=== PATIENT | female | born 1990 | race Caucasian/White ===

== ENCOUNTER → 2016-06-19 22:43 | Emergency (ER) | payer MEDICAID | END | disposition left against medical advice (07) | LOC: ED 22:43 | DX: R06.02 Shortness of breath (principal); Z53.21 Procedure and treatment not carried out due to patient leaving prior to being seen by health care provider ==

== ENCOUNTER 2016-12-16 12:22 | Emergency (ER) | payer MEDICAID, OTHER ==
[2016-12-16 17:53] VITALS: BP 120/77
[2016-12-16] MEDS ORDERED: NACL 0.9% 1000 ML 1,000 ML IV ONE (18:20)
[2016-12-16] MEDS ORDERED: ZOFRAN IV ONE (18:20)
--- NOTE | 2016-12-16 18:53 | Emergency Department Report ---
ED General Adult HPI - General Chief complaint: Medical Clearance Stated complaint: BINGE DRINKING,FAST HEART BEAT Time Seen by Provider: 12/16/16 18:16 Source: patient Mode of arrival: Ambulatory Limitations: No Limitations - History of Present Illness Initial comments: pt is 26 y/o female who with hx bipolar, and anxiety, etoh , who presents with complaint of anxiety and insomnia since last night pt denies SI or HI, no n/v no chest pain , sob no fever no chills, patient states "I was drinking Yagermiester and redbull last night and now I cant sleep" pt denies other substance no smoking . Onset/Timin -: days(s) Radiation: other (anxiety ) Severity scale (0 -10): 3 Consistency: constant Improves with: none Worsens with: none Associated Symptoms: denies: confusion, chest pain, cough, diaphoresis, fever/ chills, headaches, loss of appetite, malaise, nausea/vomiting, rash, seizure, shortness of breath Treatments Prior to Arrival: none - Related Data Previous Rx's Medication Instructions Recorded Last Taken Type Nitrofurantoin [place]/M-Cryst 100 mg PO Q12HR #14 capsule 10/03/15 Unknown Rx [Macrobid CAP] hydrOXYzine HCL [Atarax] 25 mg PO Q6HR PRN #30 tablet 12/16/16 Unknown Rx Allergies Allergy/AdvReac Type Severity Reaction Status Date / Time No Known Allergies Allergy Verified 05/24/15 17:49 ED Review of Systems ROS: Stated complaint: BINGE DRINKING,FAST HEART BEAT Other details as noted in HPI Constitutional: denies: chills, diaphoresis, fever, malaise, weakness Eyes: denies: eye pain, eye discharge, vision change ENT: denies: ear pain, throat pain Respiratory: denies: cough, shortness of breath, wheezing Cardiovascular: denies: chest pain, palpitations, dyspnea on exertion, orthopnea , paroxysmal nocturnal dyspnea Endocrine: no symptoms reported Gastrointestinal: as per HPI, nausea Genitourinary: denies: urgency, dysuria, discharge Musculoskeletal: denies: back pain, joint swelling, arthralgia Skin: denies: rash, lesions Neurological: denies: headache, weakness, numbness, paresthesias, confusion, abnormal gait, vertigo Psychiatric: anxiety. denies: depression, auditory hallucinations, visual hallucinations, homicidal thoughts, suicidal thoughts Hematological/Lymphatic: denies: easy bleeding, easy bruising ED Past Medical Hx - Past Medical History Previous Medical History?: Yes Hx Psychiatric Treatment: Yes (BiPolar, panic attacks, anxiety) - Surgical History Past Surgical History?: No - Social History Smoking Status: Current Every Day Smoker Substance Use Type: Alcohol - Medications Home Medications: Home Medications Medication Instructions Recorded Confirmed Last Taken Type Nitrofurantoin Sanborn/M-Cryst 100 mg PO Q12HR #14 capsule 10/03/15 Unknown Rx [Macrobid CAP] hydrOXYzine HCL [Atarax] 25 mg PO Q6HR PRN #30 tablet 12/16/16 Unknown Rx ED Physical Exam - General Limitations: No Limitations General appearance: alert, anxious - Head Head exam: Present: atraumatic, normocephalic, normal inspection - Eye Eye exam: Present: normal appearance, PERRL, EOMI Pupils: Present: normal accommodation - ENT ENT exam: Present: normal exam, normal orophraynx, mucous membranes moist, TM's normal bilaterally, normal external ear exam - Neck Neck exam: Present: normal inspection, full ROM. Absent: tenderness, lymphadenopathy, thyromegaly - Respiratory Respiratory exam: Present: normal lung sounds bilaterally. Absent: respiratory distress, wheezes, stridor - Cardiovascular Cardiovascular Exam: Present: regular rate, normal rhythm. Absent: systolic murmur, diastolic murmur, rubs, gallop - GI/Abdominal GI/Abdominal exam: Present: soft, normal bowel sounds. Absent: distended, tenderness, guarding, rebound, rigid, organomegaly, mass, bruit, pulsatile mass , hernia - Rectal Rectal exam: Present: deferred - Extremities Exam Extremities exam: Present: normal inspection, full ROM, normal capillary refill. Absent: tenderness, pedal edema, joint swelling, calf tenderness - Back Exam Back exam: Present: normal inspection, full ROM. Absent: tenderness, CVA tenderness (R), CVA tenderness (L), muscle spasm, paraspinal tenderness, vertebral tenderness - Neurological Exam Neurological exam: Present: alert, oriented X3, CN II-XII intact, normal gait, reflexes normal - Psychiatric Psychiatric exam: Present: anxious. Absent: depressed, agitated, flat affect, manic, homicidal ideation, suicidal ideation - Skin Skin exam: Present: warm, dry, intact, normal color. Absent: rash ED Course Vital Signs 12/16/16 12/16/16 12:56 17:45 Temperature 98.2 F Pulse Rate 82 71 Respiratory 20 16 Rate Blood Pressure 112/78 120/77 O2 Sat by Pulse 99 100 Oximetry ED Medical Decision Making - Lab Data Result diagrams: 12/16/16 18:43 12/16/16 18:43 Laboratory Tests 12/16/16 12/16/16 12/16/16 18:43 18:43 18:43 WBC 5.3 RBC 4.56 Hgb 15.0 H Hct 43.1 H MCV 94 MCH 33 H MCHC 35 H RDW 12.5 L Plt Count 157 Lymph % (Auto) 41.8 H [place]born % (Auto) 8.3 H Eos % (Auto) 0.6 Baso % (Auto) 0.5 Lymph # 2.2 Sanborn # 0.4 Eos # 0.0 Baso # 0.0 Seg Neutrophils % 48.8 Seg Neutrophils # 2.6 Sodium 145 Potassium 4.2 Chloride 102.3 Carbon Dioxide 27 Anion Gap 20 BUN 5 L Creatinine 0.5 L Estimated GFR > 60 BUN/Creatinine Ratio 10 Glucose 87 Calcium 9.9 Total Bilirubin 0.40 AST 23 ALT 23 Alkaline Phosphatase 63 Total Protein 7.8 Albumin 5.1 H Albumin/Globulin Ratio 1.9 Urine Color Urine Turbidity Urine pH Ur Specific [place] Urine Protein Urine Glucose (UA) Urine Ketones Urine Blood Urine Nitrite Ur Reducing Substances Urine Bilirubin Urine Ictotest Urine Urobilinogen Ur Leukocyte Esterase Urine WBC (Auto) Urine RBC (Auto) U Epithel Cells (Auto) Urine HCG, Qual Urine Opiates Screen Urine Methadone Screen Ur Barbiturates Screen Ur Phencyclidine Scrn Ur Amphetamines Screen U Benzodiazepines Scrn Urine Cocaine Screen U Marijuana (THC) Screen Drugs of Abuse Note Plasma/Serum Alcohol < 0.01 12/16/16 12/16/16 20:13 20:13 WBC RBC Hgb Hct MCV MCH MCHC RDW Plt Count Lymph % (Auto) Sanborn % (Auto) Eos % (Auto) Baso % (Auto) Lymph # Sanborn # Eos # Baso # Seg Neutrophils % Seg Neutrophils # Sodium Potassium Chloride Carbon Dioxide Anion Gap BUN Creatinine Estimated GFR BUN/Creatinine Ratio Glucose Calcium Total Bilirubin AST ALT Alkaline Phosphatase Total Protein Albumin Albumin/Globulin Ratio Urine Color Straw Urine Turbidity Clear Urine pH 7.0 Ur Specific [place] 1.005 Urine Protein <15 mg/dl Urine Glucose (UA) Neg Urine Ketones Neg Urine Blood Neg Urine Nitrite Neg Ur Reducing Substances Not Reportable Urine Bilirubin Neg Urine Ictotest Not Reportable Urine Urobilinogen < 2.0 Ur Leukocyte Esterase Tr Urine WBC (Auto) 2.0 Urine RBC (Auto) 3.0 U Epithel Cells (Auto) 3.0 Urine HCG, Qual Negative Urine Opiates Screen Presumptive negative Urine Methadone Screen Presumptive negative Ur Barbiturates Screen Presumptive negative Ur Phencyclidine Scrn Presumptive negative Ur Amphetamines Screen Presumptive negative U Benzodiazepines Scrn Presumptive negative Urine Cocaine Screen Presumptive negative U Marijuana (THC) Screen Presumptive negative Drugs of Abuse Note Disclamer Plasma/Serum Alcohol - EKG Data EKG shows normal: sinus rhythm Rate: normal - EKG Data When compared to previous EKG there are: no significant change Interpretation: no acute changes, normal EKG 12/16/16 21:09 ekg interpreted by ED attending - Medical Decision Making pt is 26 y/o female who with hx bipolar, and anxiety, etoh , who presents with complaint of anxiety and insomnia since last night pt denies SI or HI, no n/v no chest pain , sob no fever no chills, patient states "I was drinking Yagermiester and redbull last night and now I cant sleep" pt denies other substance no smoking. pt noted with mild anxiety denies si or hi appears well hydrated well nourished no distress at this time dressed appropriately mentation appropriated a/ox 3, is not threat to self or others at this time. no tremor no vomiting , palpations . lungs clear cv: s1 and s2 no MRG, no pnd no rocha no edema , abd : bs x 4 qds soft nontender no rebound no bruit no hernia pt has discharge plan as father will pick her up tonight upon discharge, : labs: ua : normal , hcg: negative, uds: negative, etoh: <0.01, cmp and cbc: no concerning findings pt is now tolerating po intake without symptoms , pt advised to stop ETOH, and follow up with [facility] Psychologist tomorrow, for follow up and referral to AA. pt is currently a/o x 3 ambulatory gait steady with nad, no tremor no si no hi dizziness no light headedness no n/v dc' d to self to home via pov and family member at this time. Critical care attestation.: If time is entered above; I have spent that time in minutes in the direct care of this critically ill patient, excluding procedure time. ED Disposition Clinical Impression: Dizziness, ETOH abuse Disposition: DC-01 TO HOME OR SELFCARE Is pt being admited?: No Does the pt Need Aspirin: No Condition: Stable Instructions: Abuse of Alcohol (ED), Anxiety (ED) Additional Instructions: follow up with your psycologist at [facility] tomorrow, Also [facility] at [address] [place] [address] Prescriptions: hydrOXYzine HCL [Atarax] 25 mg PO Q6HR PRN #30 tablet PRN Reason: Anxiety Referrals: PRIMARY CARE, [Primary Care Provider] - 3-5 Days Forms: Work/School Release Form(ED) Time of Disposition: 21:12
[2016-12-16 19:08] LABS: Basophils % (Auto) 0.5 % (0.0-1.8); Eosinophils % (Auto) 0.6 % (0.0-4.3); Hematocrit 43.1 % (30.3-42.9); Mean Corpuscular HGB Conc 35 % (30-34); Mean Corpuscular Hemoglobin 33 pg (28-32); Mean Corpuscular Volume 94 fl (79-97); Platelet Count 157 K/mm3 (140-440); Red Blood Count 4.56 M/mm3 (3.65-5.03); Red Cell Distribution Width 12.5 % (13.2-15.2); White Blood Count 5.3 K/mm3 (4.5-11.0)
[2016-12-16 19:21] LABS: Alanine Aminotransferase 23 units/L (7-56); Albumin 5.1 g/dL (3.9-5); Albumin/Globulin Ratio 1.9 %; Alkaline Phosphatase 63 units/L (35-129); Anion Gap 20 mmol/L; BUN/Creatinine Ratio 10; Blood Urea Nitrogen 5 mg/dL (7-17); Calcium 9.9 mg/dL (8.4-10.2); Carbon Dioxide 27 mmol/L (22-30); Chloride 102.3 mmol/L (98-107); Glucose 87 mg/dL (65-100); Potassium 4.2 mmol/L (3.6-5.0); Sodium 145 mmol/L (137-145); Total Protein 7.8 g/dL (6.3-8.2)
[2016-12-16 20:23] LABS: Urine Drugs of Abuse Note Disclamer
[2016-12-16 20:33] LABS: Bilirubin,Urine NEG (Negative); Blood,Urine NEG (Negative); Ketones,Urine NEG (Negative); Leukocyte Esterase,Urine TR (Negative); Nitrite,Urine NEG (Negative); Protein,Urine <15 mg/dL mg/dL (Negative); Urobilinogen,Urine < 2.0 mg/dL (<2.0)
== END 2016-12-16 21:21 | disposition home or self-care (01) ==
LOC: ED 12:22
DX: R42 Dizziness and giddiness (principal); F10.10 Alcohol abuse, uncomplicated; F31.9 Bipolar disorder, unspecified; F17.200 Nicotine dependence, unspecified, uncomplicated
CPT/HCPCS: 36415; 80053; 80307; 81001; 81025; 85025; 93005; 93010; 96361; 96374; 99283; G0480; J2405; J7030; 80320

== ENCOUNTER 2019-04-09 18:01 | Outpatient (CLI) | payer MEDICAID ==
[2019-04-09] MEDS ORDERED: LACTATED RINGERS 1,000 ML IV ONE (18:59)
[2019-04-09 19:08] VITALS: BP 109/70
[2019-04-09 19:35] LABS: Bilirubin,Urine NEG (Negative); Blood,Urine NEG (Negative); Color,Urine Yellow (Yellow); Mucus,Urine FEW /HPF; Protein,Urine <15 mg/dL mg/dL (Negative); Urobilinogen,Urine < 2.0 mg/dL (<2.0)
== END 2019-04-09 22:20 | disposition home or self-care (01) ==
LOC: TRG 18:01
PROVIDERS: ATTEND Obstetrics & Gynecology
DX: O26.893 Other specified pregnancy related conditions, third trimester (principal); R25.2 Cramp and spasm; O47.03 False labor before 37 completed weeks of gestation, third trimester; Z67.91 Unspecified blood type, Rh negative; Z3A.29 29 weeks gestation of pregnancy
CPT/HCPCS: 81001; 85461; 86850; 86900; 86901; 96360; 96372; J2790; J7120

== ENCOUNTER 2020-05-13 22:35 | Emergency (ER) | payer MEDICAID ==
[2020-05-13 23:29] VITALS: BP 114/87
--- NOTE | 2020-05-13 23:32 | Event Note ---
ED Screening Note Date of service: 05/13/20 Time: 23:31 ED Screening Note: pt is a 29 y/o female who presents for right flank pain radiating to right superpubic region x 2 days, pt endorse dysuria frequency and urgency, LMP 1 month ago, pt denies n/v This initial assessment/diagnostic orders/clinical plan/treatment(s) is/are subject to change based on patients health status, clinical progression and re- assessment by fellow clinical providers in the ED. Further treatment and workup at subsequent clinical providers discretion. Patient/guardian urged not to elope from the ED as their condition may be serious if not clinically assessed and managed. Initial orders include: cmp, cbc, ua, hcg
[2020-05-13 23:50] LABS: Basophils # (Auto) 0.1 K/mm3 (0.0-0.1); Basophils % (Auto) 0.6 % (0.0-1.8); Eosinophils # (Auto) 0.2 K/mm3 (0.0-0.4); Eosinophils % (Auto) 2.3 % (0.0-4.3); Hemoglobin 12.2 gm/dl (10.1-14.3); Lymphocytes # (Auto) 2.3 K/mm3 (1.2-5.4); Lymphocytes % (Auto) 24.4 % (13.4-35.0); Mean Corpuscular HGB Conc 34 % (30-34); Mean Corpuscular Volume 90 fl (79-97); Monocytes # (Auto) 0.5 K/mm3 (0.0-0.8); Monocytes % (Auto) 5.5 % (0.0-7.3); Platelet Count 228 K/mm3 (140-440); Red Blood Count 3.98 M/mm3 (3.65-5.03); Red Cell Distribution Width 13.7 % (13.2-15.2)
[2020-05-14 00:03] LABS: Bacteria,Urine 3+ /HPF (Negative); Bilirubin,Urine NEG (Negative); Blood,Urine MOD (Negative); Color,Urine Yellow (Yellow); Urobilinogen,Urine < 2.0 mg/dL (<2.0)
[2020-05-14 00:08] LABS: Alanine Aminotransferase 30 units/L (7-56); Albumin 4.5 g/dL (3.9-5); Blood Urea Nitrogen 14 mg/dL (7-17); Calcium 10.1 mg/dL (8.4-10.2); Hemolysis Index 2
[2020-05-14 00:11] LABS: BUN/Creatinine Ratio 23
[2020-05-14 00:12] LABS: HCG Qualitative,Urine Negative (Negative)
--- NOTE | 2020-05-14 00:16 | Emergency Department Report ---
ED Abdominal Pain HPI - General Chief Complaint: Abdominal Pain Stated Complaint: KIDNEY PAIN Time Seen by Provider: 05/14/20 00:10 Source: patient, EMS Mode of arrival: Ambulatory Limitations: No Limitations - History of Present Illness Initial Comments: pt is a 29 y/o female who presents for right flank pain radiating to right superpubic region x 2 days, pt endorse dysuria frequency and urgency, LMP 1 month ago, pt denies n/v , pt denies fever or chills. MD Complaint: abdominal pain, flank pain - Related Data Previous Rx's Medication Instructions Recorded Last Taken Type Ibuprofen [Motrin 800 MG tab] 800 mg PO Q8HR PRN #30 tablet 05/14/20 Unknown Rx Nitrofurantoin Kings/M-Cryst 100 mg PO BID 10 Days #20 capsule 05/14/20 Unknown Rx [Macrobid CAP] Ondansetron [Zofran Odt] 4 mg PO Q8HR PRN #12 tab.rapdis 05/14/20 Unknown Rx Allergies Allergy/AdvReac Type Severity Reaction Status Date / Time No Known Allergies Allergy Verified 07/31/18 12:48 ED Review of Systems ROS: Stated complaint: KIDNEY PAIN Other details as noted in HPI Constitutional: denies: chills, fever Eyes: denies: eye pain, eye discharge, vision change ENT: denies: ear pain, throat pain Respiratory: denies: cough, shortness of breath, wheezing Cardiovascular: denies: chest pain, palpitations Endocrine: no symptoms reported Gastrointestinal: abdominal pain (right superpubic ). denies: nausea, vomiting Genitourinary: urgency, dysuria, frequency. denies: hematuria, discharge Musculoskeletal: back pain (right flank ) Skin: denies: rash, lesions Neurological: denies: headache, weakness, paresthesias Psychiatric: denies: anxiety, depression Hematological/Lymphatic: denies: easy bleeding, easy bruising ED Past Medical Hx - Past Medical History Previous Medical History?: Yes Hx Hypertension: No Hx Heart Attack/AMI: No Hx Congestive Heart Failure: No Hx Diabetes: No Hx Deep Vein Thrombosis: No Hx Liver Disease: No Hx Renal Disease: No Hx Sickle Cell Disease: No Hx Headaches / Migraines: No Hx Seizures: No Hx Psychiatric Treatment: Yes (BiPolar, panic attacks, anxiety) Hx Asthma: No Hx COPD: No Hx HIV: No - Surgical History Past Surgical History?: Yes Hx Pacemaker: No Hx Internal Defibrillator: No Additional Surgical History: LEEP - Social History Smoking Status: Never Smoker Substance Use Type: None - Medications Home Medications: Home Medications Medication Instructions Recorded Confirmed Last Taken Type Ibuprofen [Motrin 800 MG tab] 800 mg PO Q8HR PRN #30 tablet 05/14/20 Unknown Rx Nitrofurantoin Kings/M-Cryst 100 mg PO BID 10 Days #20 capsule 05/14/20 Unknown Rx [Macrobid CAP] Ondansetron [Zofran Odt] 4 mg PO Q8HR PRN #12 tab.rapdis 05/14/20 Unknown Rx ED Physical Exam - General Limitations: No Limitations General appearance: alert, in no apparent distress - Head Head exam: Present: atraumatic, normocephalic - Eye Eye exam: Present: normal appearance, EOMI Pupils: Present: normal accommodation - ENT ENT exam: Present: mucous membranes moist - Neck Neck exam: Present: normal inspection, full ROM. Absent: tenderness - Respiratory Respiratory exam: Present: normal lung sounds bilaterally. Absent: respiratory distress, wheezes, stridor - Cardiovascular Cardiovascular Exam: Present: regular rate, normal rhythm, normal heart sounds - GI/Abdominal GI/Abdominal exam: Present: soft, normal bowel sounds. Absent: distended, tenderness, guarding, rebound, rigid, bruit, hernia - Rectal Rectal exam: Present: deferred - Extremities Exam Extremities exam: Present: full ROM. Absent: tenderness - Back Exam Back exam: Present: full ROM, tenderness (right flank), CVA tenderness (R). Absent: vertebral tenderness, rash noted - Neurological Exam Neurological exam: Present: alert, oriented X3, CN II-XII intact, normal gait - Psychiatric Psychiatric exam: Present: normal affect, normal mood - Skin Skin exam: Present: warm, dry, intact, normal color. Absent: rash ED Course Vital Signs 05/13/20 23:26 Temperature 98.5 F Pulse Rate 87 Respiratory 18 Rate Blood Pressure 114/87 O2 Sat by Pulse 100 Oximetry ED Medical Decision Making - Lab Data Result diagrams: 05/13/20 23:34 05/13/20 23:34 Labs 05/13/20 05/13/20 05/13/20 23:34 23:34 Unknown WBC 9.6 RBC 3.98 Hgb 12.2 Hct 36.0 MCV 90 MCH 31 MCHC 34 RDW 13.7 Plt Count 228 Lymph % (Auto) 24.4 Kings % (Auto) 5.5 Eos % (Auto) 2.3 Baso % (Auto) 0.6 Lymph # (Auto) 2.3 Kings # (Auto) 0.5 Eos # (Auto) 0.2 Baso # (Auto) 0.1 Seg Neutrophils % 67.2 Seg Neutrophils # 6.4 Sodium 139 Potassium 4.4 Chloride 102.3 Carbon Dioxide 30 Anion Gap 11 BUN 14 Creatinine 0.6 Estimated GFR > 60 BUN/Creatinine Ratio 23 Glucose 96 Calcium 10.1 Total Bilirubin < 0.20 AST 23 ALT 30 Alkaline Phosphatase 83 Total Protein 7.2 Albumin 4.5 Albumin/Globulin Ratio 1.7 Urine Color Yellow Urine Turbidity Slightly-cloudy Urine pH 6.0 Ur Specific [place] 1.009 Urine Protein 30 mg/dl Urine Glucose (UA) Neg Urine Ketones Neg Urine Blood Mod Urine Nitrite Neg Urine Bilirubin Neg Urine Urobilinogen < 2.0 Ur Leukocyte Esterase Lg Urine WBC (Auto) 87.0 H Urine RBC (Auto) 30.0 U Epithel Cells (Auto) < 1.0 Urine Bacteria (Auto) 3+ Urine HCG, Qual Negative - Medical Decision Making ua: pos for leuk, wbcs, , cloudy. cmp, cbc normal including bun/creatinine. plan: treat for UTI, follow up with pcp in 2-3 days, Return to emergency if symptoms worsen, pt verbaized agreement and understanding of discharge plan. DC'd to home in stable condition at this time. Critical care attestation.: If time is entered above; I have spent that time in minutes in the direct care of this critically ill patient, excluding procedure time. ED Disposition Clinical Impression: UTI (urinary tract infection) Qualifiers: Urinary tract infection type: acute cystitis Hematuria presence: without hematuria Qualified Code(s): N30.00 - Acute cystitis without hematuria Disposition: DC-01 TO HOME OR SELFCARE Is pt being admited?: No Does the pt Need Aspirin: No Condition: Stable Instructions: Abdominal Pain (ED), Antibiotic Medicine, Adult, Urinary Tract Infection, Adult Prescriptions: Nitrofurantoin Kings/M-Cryst [Macrobid CAP] 100 mg PO BID 10 Days #20 capsule Ibuprofen [Motrin 800 MG tab] 800 mg PO Q8HR PRN #30 tablet PRN Reason: pain fever Ondansetron [Zofran Odt] 4 mg PO Q8HR PRN #12 tab.rapdis PRN Reason: Nausea And Vomiting Referrals: [facility] [Other] - 3-5 Days Forms: Work/School Release Form(ED) Time of Disposition: 00:24
== END 2020-05-14 01:18 | disposition home or self-care (01) ==
LOC: ED 22:35
DX: N39.0 Urinary tract infection, site not specified (principal); F31.9 Bipolar disorder, unspecified; Z79.899 Other long term (current) drug therapy
CPT/HCPCS: 36415; 80053; 81001; 81025; 85025; 87086; 99283

== ENCOUNTER 2021-07-06 08:21 | Outpatient (CLI) | payer MEDICAID ==
[2021-07-06] MEDS ORDERED: LACTATED RINGERS 500 ML IV ONE (08:38)
[2021-07-06] MEDS ORDERED: ONDANSETRON 4 MG/2 ML INJ IV ONE (08:39)
[2021-07-06] MEDS ORDERED: ONDANSETRON 4 MG/2 ML INJ ONE (08:41)
[2021-07-06] MEDS ORDERED: LACTATED RINGERS 1,000 ML ONE (08:42)
[2021-07-06 08:55] VITALS: BP 102/55
[2021-07-06] MEDS ORDERED: LACTATED RINGERS 1,000 ML IV SCH (09:00)
[2021-07-06 10:59] LABS: Bilirubin,Urine NEG (Negative); Blood,Urine NEG (Negative); Color,Urine Yellow (Yellow); Mucus,Urine 3+ /HPF; Protein,Urine <15 mg/dL mg/dL (Negative); Urobilinogen,Urine < 2.0 mg/dL (<2.0)
[2021-07-06 12:16] LABS: Basophils % (Auto) 0.1 % (0.0-1.8); Eosinophils % (Auto) 0.1 % (0.0-4.3); Hematocrit 29.9 % (30.3-42.9); Lymphocytes # (Auto) 0.8 K/mm3 (1.2-5.4); Lymphocytes % (Auto) 9.2 % (13.4-35.0); Mean Corpuscular HGB Conc 33 % (30-34); Mean Corpuscular Volume 85 fl (79-97); Monocytes # (Auto) 0.2 K/mm3 (0.0-0.8); Monocytes % (Auto) 2.5 % (0.0-7.3); Platelet Count 162 K/mm3 (140-440); Red Blood Count 3.52 M/mm3 (3.65-5.03); Red Cell Distribution Width 14.2 % (13.2-15.2)
[2021-07-06 12:30] LABS: Alanine Aminotransferase 10 units/L (7-56); Albumin 3.5 g/dL (3.9-5); Blood Urea Nitrogen 6 mg/dL (7-17); Calcium 8.5 mg/dL (8.4-10.2); Hemolysis Index 6
[2021-07-06 12:56] LABS: BUN/Creatinine Ratio 15
== END 2021-07-06 13:31 | disposition home or self-care (01) ==
LOC: TRG 08:21 → APU 08:23 → TRG 13:31
PROVIDERS: ATTEND Obstetrics & Gynecology
DX: O21.2 Late vomiting of pregnancy (principal); O26.892 Other specified pregnancy related conditions, second trimester; R42 Dizziness and giddiness; O99.012 Anemia complicating pregnancy, second trimester; D64.9 Anemia, unspecified; O13.2 Gestational [pregnancy-induced] hypertension without significant proteinuria, second trimester; Z3A.21 21 weeks gestation of pregnancy
CPT/HCPCS: 36415; 59025; 80053; 81001; 85025; 96374; J2405; J7120; 96361; 96365

== ENCOUNTER 2021-07-23 06:12 | Outpatient (CLI) | payer MEDICAID ==
[2021-07-23] MEDS ORDERED: LACTATED RINGERS 500 ML IV ONE (06:22)
[2021-07-23 07:15] LABS: Basophils % (Auto) 0.2 % (0.0-1.8); Eosinophils % (Auto) 0.6 % (0.0-4.3); Hematocrit 29.3 % (30.3-42.9); Hemoglobin 9.4 gm/dl (10.1-14.3); Lymphocytes # (Auto) 1.4 K/mm3 (1.2-5.4); Lymphocytes % (Auto) 17.4 % (13.4-35.0); Mean Corpuscular HGB Conc 32 % (30-34); Mean Corpuscular Volume 84 fl (79-97); Monocytes # (Auto) 0.5 K/mm3 (0.0-0.8); Monocytes % (Auto) 6.8 % (0.0-7.3); Platelet Count 151 K/mm3 (140-440); Red Blood Count 3.49 M/mm3 (3.65-5.03); Red Cell Distribution Width 14.9 % (13.2-15.2)
[2021-07-23 07:47] LABS: Alanine Aminotransferase 10 units/L (7-56); Albumin 3.4 g/dL (3.9-5); Blood Urea Nitrogen 7 mg/dL (7-17); Calcium 8.4 mg/dL (8.4-10.2); Hemolysis Index 8
[2021-07-23 07:48] LABS: BUN/Creatinine Ratio 18
--- NOTE | 2021-07-23 08:00 | Ultrasound Report ---
ULTRASOUND OBSTETRIC COMPLETE INDICATION / CLINICAL INFORMATION: EFW, YULI. well-being Clinical Gestational Age (GA) in weeks.days: 23.1 TECHNIQUE: Transabdominal. COMPARISON: None available. FINDINGS: NUMBER: Single PRESENTATION: cephalic PLACENTA: Not evaluated MATERNAL ADNEXA: No significant abnormality. AMNIOTIC FLUID VOLUME: Borderline to mildly increased. AMNIOTIC FLUID INDEX (YULI) in cm (if measured): 24.4 ANATOMY: anatomical survey was not performed. MEASUREMENTS: - Biparietal Diameter = 5.7 cm = 23.3 weeks.days - Head Circumference = 21.7 cm = 23.5 weeks.days - Abdominal Circumference = 20.2 cm = 24.5 weeks.days - Femur Length = 4.5 cm = 24.6 weeks.days - Estimated Weight (in grams, if calculated): 719 +/- 106 - Heart Rate (beats per minute): 139 ADDITIONAL FINDINGS: None. PERCENTILE ESTIMATED WEIGHT (if calculated): 97 AVERAGE ULTRASOUND AGE (AUA) in weeks.days = 24.1 IMPRESSION: 1. Single intrauterine with AUA of 24.1 weeks.days 2. Borderline polyhydramnios 3. No acute abnormality is appreciated. Signer Name: Kam Sampson Jr, MD Signed: 07/23/2021 7:56 AM Workstation Name: [id number]
[2021-07-23 08:41] VITALS: BP 92/51
[2021-07-23] MEDS ORDERED: hydrOXYzine PAMOATE 25 MG CAP PO SCH (09:00)
== END 2021-07-23 08:59 | disposition still patient (30) ==
LOC: TRG 06:12 → APU 06:13 → TRG 08:59
PROVIDERS: ATTEND Obstetrics & Gynecology Gynecology
DX: O21.2 Late vomiting of pregnancy (principal); O26.892 Other specified pregnancy related conditions, second trimester; R10.30 Lower abdominal pain, unspecified; Z3A.24 24 weeks gestation of pregnancy
CPT/HCPCS: 36415; 59025; 76816; 80053; 82962; 85025; J7120; 96360

== ENCOUNTER 2021-07-23 09:04 | Emergency (ER) | payer MEDICAID ==
[2021-07-23] MEDS ORDERED: METOCLOPRAMIDE 10 MG/2 ML INJ IV ONE (12:55)
[2021-07-23] MEDS ORDERED: SODIUM CHLORIDE 0.9% 1000 ML 1,000 ML IV ONE (12:55)
[2021-07-23 12:58] LABS: Basophils % (Auto) 0.5 % (0.0-1.8); Eosinophils % (Auto) 0.4 % (0.0-4.3); Hematocrit 29.5 % (30.3-42.9); Hemoglobin 9.5 gm/dl (10.1-14.3); Lymphocytes # (Auto) 1.6 K/mm3 (1.2-5.4); Lymphocytes % (Auto) 19.3 % (13.4-35.0); Mean Corpuscular HGB Conc 32 % (30-34); Mean Corpuscular Volume 84 fl (79-97); Monocytes # (Auto) 0.4 K/mm3 (0.0-0.8); Monocytes % (Auto) 5.2 % (0.0-7.3); Platelet Count 159 K/mm3 (140-440); Red Blood Count 3.54 M/mm3 (3.65-5.03)
[2021-07-23 13:14] LABS: Alanine Aminotransferase 10 units/L (7-56); Albumin 3.4 g/dL (3.9-5); Blood Urea Nitrogen 5 mg/dL (7-17); Calcium 8.7 mg/dL (8.4-10.2); Hemolysis Index 10
[2021-07-23 13:15] LABS: BUN/Creatinine Ratio 17
--- NOTE | 2021-07-23 14:50 | Emergency Department Report ---
ED Dizziness HPI - General Chief Complaint: Dizziness Stated Complaint: SEVERE DIZZINESS/VOMITING/STOMACH PAIN Time Seen by Provider: 07/23/21 12:14 Source: patient Mode of arrival: Ambulatory Limitations: No Limitations - History of Present Illness Initial Comments: This is a 30-year-old female nontoxic, well nourished in appearance, no acute signs of distress presents to the ED with c/o of dizziness. Patient stated is about 22 weeks . Denies any vaginal bleeding. Denies any pelvic or abdominal pains. Patient was seen in L/D prior to ED and was cleared. Patient denies any headache or head trauma. Patient stated the dizziness is worsened with position change. Patient did stated has been vomiting the past 2 days. Stated has some nausea now without any vomiting. Patient denies any numbness, tingling, headache, stiff neck, chest pain, shortness of breathe, numbness or tingling. Denies any visual changes or blurry vision. Denies any drug allergies. MD Complaint: dizziness -: days(s) Description: lightheadedness, nausea Severity: mild Improves With: rest Worsens With: position Associated Symptoms: denies other symptoms. denies: ataxia, chest pain, co nfusion, cough, diaphoresis, fever/chills, loss of appetite, malaise, rash, seizure, shortness of breath, syncope, weakness - Related Data Previous Rx's Medication Instructions Recorded Last Taken Type Ibuprofen [Motrin 800 MG tab] 800 mg PO Q8HR PRN #30 tablet 05/14/20 Unknown Rx Nitrofurantoin [place]/M-Cryst 100 mg PO BID 10 Days #20 capsule 05/14/20 Unknown Rx [Macrobid CAP] Ondansetron [Zofran Odt] 4 mg PO Q8HR PRN #12 tab.rapdis 05/14/20 Unknown Rx Metoclopramide [Reglan] 10 mg PO BID PRN #12 tab 07/23/21 Unknown Rx Allergies Allergy/AdvReac Type Severity Reaction Status Date / Time No Known Allergies Allergy Verified 07/31/18 12:48 ED Review of Systems ROS: Stated complaint: SEVERE DIZZINESS/VOMITING/STOMACH PAIN Other details as noted in HPI Comment: All other systems reviewed and negative Constitutional: denies: chills, fever Eyes: denies: eye pain, eye discharge, vision change ENT: denies: ear pain, throat pain Respiratory: denies: cough, shortness of breath, wheezing Cardiovascular: denies: chest pain, palpitations Endocrine: no symptoms reported Gastrointestinal: denies: abdominal pain, nausea, diarrhea Genitourinary: denies: urgency, dysuria, discharge Musculoskeletal: denies: back pain, joint swelling, arthralgia Skin: denies: rash, lesions Neurological: vertigo. denies: headache, weakness, numbness, paresthesias, confusion, abnormal gait Psychiatric: denies: anxiety, depression Hematological/Lymphatic: denies: easy bleeding, easy bruising ED Past Medical Hx - Past Medical History Hx Hypertension: No Hx Heart Attack/AMI: No Hx Congestive Heart Failure: No Hx Diabetes: No Hx Deep Vein Thrombosis: No Hx Liver Disease: No Hx Renal Disease: No Hx Sickle Cell Disease: No Hx Headaches / Migraines: No Hx Seizures: No Hx Psychiatric Treatment: Yes (BiPolar, panic attacks, anxiety) Hx Asthma: No Hx COPD: No Hx HIV: No - Surgical History Hx Pacemaker: No Hx Internal Defibrillator: No Additional Surgical History: LEEP - Social History Smoking Status: Never Smoker Substance Use Type: None - Medications Home Medications: Home Medications Medication Instructions Recorded Confirmed Last Taken Type Ibuprofen [Motrin 800 MG tab] 800 mg PO Q8HR PRN #30 tablet 05/14/20 Unknown Rx Nitrofurantoin [place]/M-Cryst 100 mg PO BID 10 Days #20 capsule 05/14/20 Unknown Rx [Macrobid CAP] Ondansetron [Zofran Odt] 4 mg PO Q8HR PRN #12 tab.rapdis 05/14/20 Unknown Rx Metoclopramide [Reglan] 10 mg PO BID PRN #12 tab 07/23/21 Unknown Rx ED Physical Exam - General Limitations: No Limitations General appearance: alert, in no apparent distress - Head Head exam: Present: atraumatic, normocephalic - Eye Eye exam: Present: normal appearance, PERRL, EOMI - Neck Neck exam: Present: normal inspection, full ROM. Absent: tenderness, meningismus, lymphadenopathy - Expanded Neck Exam Expanded Neck exam: Absent: tenderness, midline deformity, anterior neck swelling, thyroid mass, carotid bruit, tracheal deviation - Respiratory Respiratory exam: Present: normal lung sounds bilaterally. Absent: respiratory distress, wheezes, rales, rhonchi, stridor, chest wall tenderness, accessory muscle use, decreased breath sounds, prolonged expiratory - Cardiovascular Cardiovascular Exam: Present: regular rate, normal rhythm, normal heart sounds. Absent: bradycardia, tachycardia, irregular rhythm, systolic murmur, diastolic murmur, rubs, gallop - GI/Abdominal GI/Abdominal exam: Present: soft. Absent: distended, tenderness - Extremities Exam Extremities exam: Present: normal inspection, full ROM, normal capillary refill. Absent: tenderness - Back Exam Back exam: Present: normal inspection, full ROM. Absent: tenderness, CVA tenderness (R), CVA tenderness (L), muscle spasm, paraspinal tenderness, vertebral tenderness, rash noted - Neurological Exam Neurological exam: Present: alert, oriented X3, normal gait - Expanded Neurological Exam Expanded Patient oriented to: Present: person, place, time Cranial nerves: EOM's Intact: Normal, Facial Sensation: Normal Cerebellar function: Finger to Nose: Normal Upper motor neuron: Pronator Drift: Normal, Sensory Extinction: Normal Motor strength exam: RUE: 5, LUE: 5, RLE: 5, LLE: 5 Best Eye Response ([place]): (4) open spontaneously Best Motor Response ([place]): (6) obeys commands Best Verbal Response ([place]): (5) oriented [place] Total: 15 - Psychiatric Psychiatric exam: Present: normal affect, normal mood - Skin Skin exam: Present: warm, dry, intact, normal color. Absent: rash ED Course Vital Signs 07/23/21 11:06 Temperature 98.0 F Pulse Rate 86 Respiratory 18 Rate Blood Pressure 108/71 [Left] O2 Sat by Pulse 98 Oximetry - Reevaluation(s) Reevaluation #1: 07/23/21 14:50 Patient is speaking in full sentences with no signs of distress noted. ED Medical Decision Making - Lab Data Result diagrams: 07/23/21 12:28 07/23/21 12:28 Lab Results 07/23/21 07/23/21 07/23/21 Range/Units 12:28 12:28 Unknown WBC 8.1 (4.5-11.0) K/mm3 RBC 3.54 L (3.65-5.03) M/mm3 Hgb 9.5 L (10.1-14.3) gm/dl Hct 29.5 L (30.3-42.9) % MCV 84 (79-97) fl MCH 27 L (28-32) pg MCHC 32 (30-34) % RDW 15.0 (13.2-15.2) % Plt Count 159 (140-440) K/mm3 Lymph % (Auto) 19.3 (13.4-35.0) % [place] % (Auto) 5.2 (0.0-7.3) % Eos % (Auto) 0.4 (0.0-4.3) % Baso % (Auto) 0.5 (0.0-1.8) % Lymph # (Auto) 1.6 (1.2-5.4) K/mm3 [place] # (Auto) 0.4 (0.0-0.8) K/mm3 Eos # (Auto) 0.0 (0.0-0.4) K/mm3 Baso # (Auto) 0.0 (0.0-0.1) K/mm3 Seg Neutrophils % 74.6 H (40.0-70.0) % Seg Neutrophils # 6.0 (1.8-7.7) K/mm3 Sodium 139 (137-145) mmol/L Potassium 4.3 (3.6-5.0) mmol/L Chloride 105.5 (98-107) mmol/L Carbon Dioxide 22 (22-30) mmol/L Anion Gap 16 mmol/L BUN 5 L (7-17) mg/dL Creatinine 0.3 L (0.6-1.2) mg/dL Estimated GFR > 60 ml/min BUN/Creatinine Ratio 17 % Glucose 86 (65-100) mg/dL Calcium 8.7 (8.4-10.2) mg/dL Total Bilirubin 0.20 (0.1-1.2) mg/dL AST 16 (5-40) units/L ALT 10 (7-56) units/L Alkaline Phosphatase 57 (35-129) units/L Total Protein 6.1 L (6.3-8.2) g/dL Albumin 3.4 L (3.9-5) g/dL Albumin/Globulin Ratio 1.3 % Urine Color Straw (Yellow) Urine Turbidity Clear (Clear) Urine pH 7.0 (5.0-7.0) Ur Specific [place] 1.012 (1.003-1.030) Urine Protein <15 mg/dl (Negative) mg/dL Urine Glucose (UA) Neg (Negative) mg/dL Urine Ketones 80 (Negative) mg/dL Urine Blood Neg (Negative) Urine Nitrite Neg (Negative) Urine Bilirubin Neg (Negative) Urine Urobilinogen < 2.0 (<2.0) mg/dL Ur Leukocyte Esterase Neg (Negative) Urine WBC (Auto) 1.0 (0.0-6.0) /HPF Urine RBC (Auto) 1.0 (0.0-6.0) /HPF U Epithel Cells (Auto) < 1.0 (0-13.0) /HPF Urine Mucus Few /HPF - EKG Data 07/23/21 16:58 Normal sinus rhythm. No ST or T wave abnormalities. Reviewed and signed by MD. - Medical Decision Making This is a 30-year-old female that presents with dizziness and iron deficiency anemia. Patient is stable and was examined by me. Patient currently is taking multivitamin which stated has iron. EKG is normal sinus rhythm with no ST abnormalities. Labs are unremarkable. Urine obtained. Orthostatic vital signs obtained and within normal limits. Patient received 1 L of normal saline which she stated his symptoms of dizziness has subsided and resolved. Patient is neurologically stable. Patient was instructed to Follow-up with a OBGYN doctor in 3-5 days or if symptoms worsen and continue return to emergency room as soon as possible. At time of discharge, the patient does not seem toxic or ill in appearance. No acute signs of distress noted. Patient agrees to discharge treatment plan of care. No further questions noted by the patient. Critical care attestation.: If time is entered above; I have spent that time in minutes in the direct care of this critically ill patient, excluding procedure time. ED Disposition Clinical Impression: Dizziness, Dehydration Iron deficiency anemia Qualifiers: Iron deficiency anemia type: unspecified iron deficiency Qualified Code(s): D50.9 - Iron deficiency anemia, unspecified Disposition: 01 HOME / SELF CARE / HOMELESS Is pt being admited?: No Does the pt Need Aspirin: No Condition: Stable Instructions: Dehydration, Adult, [id number], Dizziness, and Anemia Additional Instructions: Follow-up with a [facility] doctor in 3-5 days or if symptoms worsen and continue return to emergency room as soon as possible. Prescriptions: Metoclopramide [Reglan] 10 mg PO BID PRN #12 tab PRN Reason: Nausea Referrals: PRIMARY CARE, [Primary Care Provider] - 3-5 Days [facility] [Provider Group] - 3-5 Days [facility] [Provider Group] - 3-5 Days Time of Disposition: 17:10
[2021-07-23 15:28] LABS: Bilirubin,Urine NEG (Negative); Blood,Urine NEG (Negative); Color,Urine Straw (Yellow); Mucus,Urine FEW /HPF; Protein,Urine <15 mg/dL mg/dL (Negative); Urobilinogen,Urine < 2.0 mg/dL (<2.0)
[2021-07-23 17:16] VITALS: BP 128/71
--- NOTE | 2021-07-28 18:23 | Electrocardiograph Report ---
[facility] Test Date: 2021-07-23 Test Time: 16:20:40 Pat Name: JANET LINCOLN Department: Room: Gender: F Coater: FUNMI : 1990 Requested By: BAKARI ORLANDO Order Number: [id number] Reading MD: Kellie Hernandez Measurements Intervals [place] Rate: 89 P: 42 AR: 113 QRS: -24 QRSD: 91 T: 26 QT: 367 QTc: 448 Interpretive Statements Sinus rhythm No previous ECG available for comparison Electronically Signed On 07-28-2021 18:22:34 EDT by Kellie Hernandez
== END 2021-07-23 17:16 | disposition home or self-care (01) ==
LOC: ED 09:04
DX: O26.812 Pregnancy related exhaustion and fatigue, second trimester (principal); O99.012 Anemia complicating pregnancy, second trimester; E86.0 Dehydration; Z3A.22 22 weeks gestation of pregnancy
CPT/HCPCS: 36415; 59025; 76816; 80053; 81001; 82962; 85025; 93005; 96361; 96374; 99283; J2765; J7030; J7120; 96360